=== PATIENT | female | born 1965 ===

== ENCOUNTER → 2021-04-22 07:28 | Outpatient (CLI) | payer OTHER | END | disposition home or self-care (01) | LOC: LAB 07:28 | PROVIDERS: ATTEND Orthopaedic Surgery | DX: E21.2 Other hyperparathyroidism (principal); E55.9 Vitamin D deficiency, unspecified; M85.9 Disorder of bone density and structure, unspecified; E88.89 Other specified metabolic disorders; M81.8 Other osteoporosis without current pathological fracture; E56.1 Deficiency of vitamin K ==

== ENCOUNTER → 2021-07-27 06:34 | Outpatient (CLI) | payer OTHER | END | disposition home or self-care (01) | LOC: LAB 06:34 | PROVIDERS: ATTEND Orthopaedic Surgery | DX: D64.89 Other specified anemias (principal); E88.89 Other specified metabolic disorders; D68.8 Other specified coagulation defects; N39.0 Urinary tract infection, site not specified; Z22.322 Carrier or suspected carrier of Methicillin resistant Staphylococcus aureus; Z76.89 Persons encountering health services in other specified circumstances; I10 Essential (primary) hypertension; I49.8 Other specified cardiac arrhythmias ==

== ENCOUNTER 2021-08-07 05:40 | Day surgery (SDC) | payer OTHER ==
[~2021-08-07 05:40] MED LIST: CLONAZ PO; EFFEXOR XR150 MG PO; HORIZANT300 MG PO; HYDRODIURIL12.5 MG PO; LIPITOR40 M1 PO; RISPERDAL0.5 MG PO; SYNTHROID100 MCG PO; TOPROL XL25 M1 PO; VITAMIN B12 PO; VITAMIN D PO
== END 2021-08-07 11:25 | disposition home or self-care (01) ==
LOC: CIR.AMB 05:40
PROVIDERS: ATTEND Orthopaedic Surgery
DX: M23.252 Derangement of posterior horn of lateral meniscus due to old tear or injury, left knee (principal); M12.262 Villonodular synovitis (pigmented), left knee; M22.12 Recurrent subluxation of patella, left knee; M22.42 Chondromalacia patellae, left knee